=== PATIENT | female | born 1965 | race African-American/Black ===

== ENCOUNTER 2020-04-18 10:15 | Emergency (ER) | payer OTHER ==
[~2020-04-18] VITALS: Ht 162.6 cm; Wt 806.5 kg
[2020-04-18 10:24] VITALS: Ht 162.6 cm; Wt 806.5 kg
[2020-04-18 11:48] LABS: microscopic required? NO
[2020-04-18 12:03] LABS: BASOPHIL % 0.4 % (0-2); PLATELET COUNT 373 x10^3mcL (130-400)
[2020-04-18 12:04] LABS: RED CELL DISTRIBUTION WIDTH 14.7 % (11.5-14.5)
[2020-04-18 12:11] LABS: urine erythrocyte NEGATIVE (NEGATIVE)
[2020-04-18 12:26] LABS: CALCIUM 9.7 mg/dL (8.5-10.1); CARBON DIOXIDE 31.5 mmol/L (21-32); CHLORIDE SERUM 96 mmol/L (98-107); CREATININE SERUM 0.9 mg/dL (0.6-1.0); GFR1 > 60 mL/min; GLUCOSE SERUM 307 mg/dL (74-106); POTASSIUM SERUM 3.4 mmol/L (3.5-5.1); SODIUM SERUM 136 mmol/L (136-145)
[2020-04-18 12:31] LABS: ALBUMIN 3.5 g/dL (3.4-5.0); ALKALINE PHOSPHATASE 105 U/L (46-116); ALT/SGPT 20 U/L (14-59); AMYLASE 75 U/L (25-115); AST/SGOT 12 U/L (15-37); BILIRUBIN TOTAL 0.31 mg/dL (0.20-1.00); LIPASE 309 IU/L (73-393); TOTAL PROTEIN, SERUM 7.9 g/dL (6.4-8.2)
[2020-04-18 15:02] VITALS: BP 160/82
== END 2020-04-18 15:02 | disposition home or self-care (01) ==
LOC: ED 10:15
PROVIDERS: Emergency Medicine
DX: R10.13 Epigastric pain (principal); Z88.5 Allergy status to narcotic agent; I10 Essential (primary) hypertension; E11.9 Type 2 diabetes mellitus without complications; Z98.890 Other specified postprocedural states
CPT/HCPCS: J1885; J2405; J7030; Q0092; Q9967